=== PATIENT | female | born 1980 | race African-American/Black ===

== ENCOUNTER 2016-09-06 21:21 | Emergency (ER) | payer MEDICARE, OTHER ==
--- NOTE | ~2016-09-06 | EKG ---
PATIENT: IRA FRANZ UNIT #: [id number] Ventricular Rate: 72 BPM Atrial Rate: 72 BPM P-R Interval: 168 ms QRS Duration: 88 ms Q-T Interval: 414 ms QTC Calculation(Bezet): 453 ms P [place]: 71 degrees Calculated R [place]: 6 degrees Calculated T [place]: 24 degrees Diagnosis Line: Sinus rhythm with occasional Premature ventricular Diagnosis Line: complexes Diagnosis Line: Cannot rule out Anterior infarct , age Diagnosis Line: undetermined Diagnosis Line: Borderline ECG Diagnosis Line: No previous ECGs available Diagnosis Line: Confirmed by KIMBERLY VINCENT MD ([id number]) on 09/09/2016 Diagnosis Line: 4:15:45 PM INTERPRETING MD: CARLTON ENGLAND
[~2016-09-06 21:21] MED LIST: ADVAIR 2501 DISK W/D; ALBUTEROL17 GM; ANUSOL SUPP1 SUPP PR; AUGMENTIN PO; BACTRIM DS TABL1 TA1 PO; BACTRIM DS TABL1 TA2 PO; BENTYL10 MG PO; DDAVP0.2 MG; DETROL LA; GEODAN; GEODON80 MG PO; IBUPROFEN800 MG PO; KETOPROFEN PO; MEDROL PO; MOTRIN600 MG PO; NORCO 5/325 TAB1 TAB PO; PEPCID PO; PERCOCET5/325 PO; PHENERGAN PO; PHENERGAN12.5 M1 PO; PHENERGAN25 M1 PO; PHENERGAN25 MG PO; PROMETHAZINE HC25 MG PO; SEROQUEL PO; TOPAMAX; TOPAMAX PO; TOPAMAX200 MG PO; TUCKS RC; TYLENOL325 M1 PO; WALGREENS PHARMACY; ZOLOFT; ZOLOFT PO; ZOLOFT100 MG PO; ZYRTEC10 M2 PO
[2016-09-06 22:22] LABS: POC - CKMB 1.8 ng/mL (0.0-7.9); POC - TROPONIN <0.05 ng/mL (<=0.05)
[2016-09-06 23:08] LABS: URINE SOURCE CLEAN CATCH
[2016-09-06 23:14] LABS: BASOPHIL# 0.1 X10e3 (0-0.3); BASOPHIL% 0.9 % (0-2.5); EOSINOPHIL# 0.2 X10e3 (0-0.7); EOSINOPHIL% 1.6 % (0.0-7.0); HEMATOCRIT 38.2 % (35.0-45.0); HEMOGLOBIN 11.9 gm/dL (12.0-16.0); LYMPHOCYTE# 4.4 X10e3 (1.0-3.5); LYMPHOCYTE% 30.7 % (17.0-45.0); MEAN CELL VOLUME 86.1 FL (83-96); MEAN CORPUSCULAR HEMOGLOBIN 26.9 PG (28-34); MEAN CORPUSCULAR HGB CONC 31.2 g/dL (30-36); MONOCYTE# 1.6 X10e3 (0-1.0); MONOCYTE% 10.9 % (3.0-12.0); NEUTROPHIL% 55.9 % (40-75); PLATELET COUNT 252 X10e3 (140-420); RED BLOOD COUNT 4.44 X10e (3.90-5.30); RED CELL DISTRIBUTION WIDTH 15.5 % (11.0-15.5); WHITE BLOOD COUNT 14.3 X10e3 (4.0-10.5)
[2016-09-06 23:16] LABS: DIFF IND NO
[2016-09-06 23:16] LABS: URINE APPEARANCE CLOUDY; URINE BILIRUBIN NEG (NEG); URINE BLOOD 3+ (NEG); URINE COLOR DK YELLOW; URINE GLUCOSE NEG (NEG); URINE KETONE 1+ (NEG); URINE LEUKOCYTE ESTERASE 1+ (NEG); URINE NITRATE NEG (NEG); URINE PROTEIN TRACE (NEG); URINE SPECIFIC GRAVITY 1.032 (1.003-1.035)
[2016-09-06 23:20] LABS: CULTURE INDICATED? YES; URINE BACTERIA AUWI 2+ (NEGATIVE); URINE SQUAMOUS EPITHELIAL CELL MOD /[HPF]
[2016-09-07 01:03] LABS: URINE SOURCE CATH
[2016-09-07 01:15] LABS: URINE APPEARANCE CLEAR; URINE BILIRUBIN NEG (NEG); URINE BLOOD NEG (NEG); URINE COLOR YELLOW; URINE GLUCOSE NEG (NEG); URINE KETONE TRACE (NEG); URINE LEUKOCYTE ESTERASE NEG (NEG); URINE NITRATE NEG (NEG); URINE PH 5.5 (5-8); URINE PROTEIN NEG (NEG); URINE SPECIFIC GRAVITY 1.031 (1.003-1.035)
[2016-09-07 01:19] LABS: CULTURE INDICATED? NO
[2016-09-07 02:29] LABS: ALBUMIN SERUM 3.6 g/dL (3.5-5.0); ALKALINE PHOSPHATASE 60 U/L (32-92); ALT (SGPT) 17 U/L (10-40); AST (SGOT) 19 U/L (10-42); BILIRUBIN,TOTAL 0.6 mg/dL (0.2-2.0); BLOOD UREA NITROGEN 10 mg/dL (9-23); CALCIUM SERUM 7.9 mg/dL (8.4-10.2); CARBON DIOXIDE 19 mmol/L (22-31); CHLORIDE 110 mmol/L (100-111); CREATININE SERUM 0.8 mg/dL (0.6-1.4); GLOM FILT RATE Estimated 110.8 mL/min (>60); GLUCOSE FASTING 90 mg/dL (70-110); POTASSIUM 3.5 mmol/L (3.5-5.1); PROTEIN TOTAL SERUM 7.4 g/dL (6.0-8.3); SODIUM 137 mmol/L (135-145)
[2016-09-07 02:31] LABS: BILIRUBIN, DIRECT <0.1 mg/dL (0.0-0.2); BILIRUBIN,INDIRECT 0.5 mg/dL (0.0-0.9)
== END 2016-09-07 03:07 | disposition home or self-care (01) ==
LOC: CED 21:21
PROVIDERS: Emergency Medicine
DX: R42 Dizziness and giddiness (principal); R53.81 Other malaise; E83.51 Hypocalcemia; J45.909 Unspecified asthma, uncomplicated; F41.8 Other specified anxiety disorders; I10 Essential (primary) hypertension
CPT/HCPCS: 80048; 80076; 81003; 82553; 82947; 84484; 85025; 87086; 93005; 96360; 99284